=== PATIENT | male | born 1965 | race Caucasian/White ===

== ENCOUNTER 2024-08-05 09:48 | Emergency (ER) | payer MEDICAID ==
[~2024-08-05] VITALS: Ht 172.7 cm; Wt 135.2 kg
[2024-08-05 09:58] VITALS: BP 152/80; PULSE 101; RESP 20; TEMP 98.9; O2SAT 97
[2024-08-05 10:40] VITALS: BP 168/87; PULSE 95; RESP 20; TEMP 98.9; O2SAT 97
[2024-08-05 12:05] LABS: APPEARANCE,URINE TURBID (CLEAR); BILIRUBIN,URINE NEGATIVE (NEGATIVE); BLOOD, URINE TRACE-I (NEGATIVE); COLOR,URINE ORANGE (YELLOW); LEUKOCYTE ESTERASE ,URINE 1+ (NEGATIVE); NITRITE, URINE POSITIVE (NEGATIVE); PROTEIN,URINE TRACE (NEGATIVE); UGLUCOSE NEGATIVE (NEGATIVE)
[2024-08-05 12:12] LABS: BACTERIA,URINE >30 (MANY) /HPF (None Seen); MUCUS,URINE 1+ /LPF (None Seen); SQUAMOUS EPITHELIAL CELL,UR 0-3 (FEW) /LPF (0-3 (FEW))
[2024-08-05] MEDS ORDERED: ACET-8905 PO (12:36)
[2024-08-05] MEDS ORDERED: SULF-59 PO (12:36)
[2024-08-05] MEDS ORDERED: IBUP-2213 PO (12:36)
== END 2024-08-05 12:40 | disposition home or self-care (01) ==
LOC: MED 09:48
DX: N45.2 Orchitis (principal); R03.0 Elevated blood-pressure reading, without diagnosis of hypertension; Z90.49 Acquired absence of other specified parts of digestive tract
CPT/HCPCS: 76870; 81001; 87086; 87186; 99284; Q0092